=== PATIENT | male | born 1990 | race Two or more races ===

== ENCOUNTER 2020-11-26 19:23 | Inpatient (IN) | payer OTHER ==
[~2020-11-26] VITALS: Ht 175.3 cm; Wt 88.5 kg
--- NOTE | 2020-11-26 19:35 | NUR ---
PT BIBRA C/O SYNCOPAL EPISODE IN [employer] CHAIR. PT AAOX4 BREATHING EVENLY AND UNLABORED. PT STATES THAT HE WAS CONFUSED AFTER WAKING UP AND THAT HE FELT EVERYTHING "GO BLACK" BEFORE HIS SYNCOPAL EPISODE. PT SKIN WARM, DRY, AND INTACT. PT ARRIVED WITH 18G IN LEFT AC. PT ATTACHED TO MONITOR AND POX. PT GIVEN WARM BLANKET AND CALL LIGHT WITHIN REACH.
--- NOTE | 2020-11-26 19:50 | NUR ---
Note undone in EDM - 11/26/20 at 2005 by SUGAR PT BIBRA C/O SYNCOPAL EPISODE IN [employer] CHAIR. PT AAOX4 BREATHING EVENLY AND UNLABORED. PT STATES THAT HE WAS CONFUSED AFTER WAKING UP AND THAT HE FELT EVERYTHING "GO BLACK" BEFORE HIS SYNCOPAL EPISODE. PT SKIN WARM, DRY, AND INTACT. PT ARRIVED WITH 18G IN LEFT AC. PT ATTACHED TO MONITOR AND POX. PT GIVEN WARM BLANKET AND CALL LIGHT WITHIN REACH.
--- NOTE | 2020-11-26 19:54 | NUR ---
, NAZARIO TATUM, MITCHELL
[2020-11-26] MEDS ORDERED: IV NS 0.9% 1,000 ML IV ONE (20:00)
--- NOTE | 2020-11-26 20:14 | NUR ---
LAB AT [facility]
--- NOTE | 2020-11-26 20:14 | NUR ---
EMT AT BEDSIDE PERFORMING EKG
[2020-11-26 20:19] LABS: BASOPHILS # (AUTO) 0.1 /CMM (0.0-0.2); BASOPHILS % (AUTO) 0.9 % (0.0-2.0); HEMATOCRIT 40 % (39-51); HEMOGLOBIN 13.6 g/dL (13.5-17.5); LYMPHOCYTES # (AUTO) 1.8 /CMM (0.8-4.8); LYMPHOCYTES % (AUTO) 14.1 % (20.0-44.0); MEAN CORPUSCULAR HGB CONC 34 g/dl (31.0-36.0); MEAN CORPUSCULAR VOLUME 91 fL (80-96); MONOCYTES # (AUTO) 0.6 /CMM (0.1-1.30); MONOCYTES % (AUTO) 4.9 % (2.0-12.0); NEUTROPHILS % (AUTO) 79.1 % (43.0-81.0); PLATELET COUNT (AUTO) 187 /CMM (150-450); RED BLOOD CELL COUNT(AUTO) 4.41 MIL/uL (4.5-6.0); WHITE BLOOD COUNT (AUTO) 12.7 K/uL (4.3-11.0)
[2020-11-26 20:32] LABS: CALCIUM, SERUM 8.2 mg/dL (8.5-10.1); CARBON DIOXIDE 25 mmol/L (21-32); CHLORIDE 104 mmol/L (98-107); CREATININE 1.2 mg/dL (0.6-1.3); GLUCOSE 129 mg/dL (74-106); SODIUM SERUM 141 mmol/L (136-145); UREA NITROGEN, BLOOD 17 mg/dL (7-18)
--- NOTE | 2020-11-26 20:50 | NUR ---
called lab for covid swab
--- NOTE | 2020-11-26 20:54 | NUR ---
PT UNABLE TO GIVE URINE SAMPLE AT THE MOMENT
--- NOTE | 2020-11-26 22:26 | NUR ---
Call from Lab. rapid covid negative.
[2020-11-26] MEDS ORDERED: Z GUARD REMEDY 2 OZ OINT TP PRN (22:30)
[2020-11-26] MEDS ORDERED: IV NS 0.9% 1,000 ML IV PRN (22:30)
[2020-11-26] MEDS ORDERED: ONDANSETRON HCL/PF 4 MG/2 ML VIAL IVP PRN (22:30)
[2020-11-26] MEDS ORDERED: HYDROCODONE/APAP 5/325MG TABLET PO PRN (22:30)
[2020-11-26] MEDS ORDERED: LORAZEPAM INJ 2 MG/ML VIAL IV PRN (22:30)
[2020-11-26] MEDS ORDERED: MAG HYDROX/AL HYDROX/SIMETH 30 ML UDC PO PRN (22:30)
[2020-11-26] MEDS ORDERED: MAGNESIUM HYDROXIDE 30 ML UDC PO PRN (22:30)
[2020-11-26] MEDS ORDERED: ACETAMINOPHEN 325 MG TABLET PO PRN (22:30)
--- NOTE | 2020-11-26 22:59 | NUR ---
BED 320
--- NOTE | 2020-11-26 23:36 | NUR ---
gave report to garrett quinones for deanna
[2020-11-26 23:50] VITALS: BP 115/64
--- NOTE | 2020-11-26 23:50 | NUR ---
BALL ENDER NOTES RECEIVED REPORT FROM BECKI OVER THE PHONE. PATIENT WAS BROUGHT UP. A/O X4. NO SOB NOTED. IN NO APPARENT DISTRESS. VS BP 115/64 NC 85 RR 16 TEMP 97.8
[2020-11-27 04:00] VITALS: BP 109/56
--- NOTE | 2020-11-27 07:02 | NUR ---
PUBLIC HEALTH PHYSICIAN CLOSING NOTES PATIENT IN BED. A/O X4, AMBULATORY. AFEBRILE. NO SOB NOTED. NO S/S OF RESPIRATORY DISTRESS. BREATHING IS EVEN AND UNLABORED. DENIES ANY PAIN AT THIS TIME. TELE READING SB 53. IV ACCESS ON L AC #18 G, INTACT, PATENT, FLUSHING WELL. ALL NEEDS HAVE BEEN MET. SAFETY MEASURES MAINTAINED. BED IN LOWEST POSITION, BRAKES LOCKED. SIDE RAILS UP X2. CALL LIGHT WITHIN REACH. WILL ENDORSE TO PRECISION THREAD GRINDER OPERATOR FOR CONTINUITY OF CARE.
[2020-11-27 07:04] LABS: BASOPHILS % (AUTO) 0.4 % (0.0-2.0); EOSINOPHILS % (AUTO) 1.9 % (0.0-6.0); HEMATOCRIT 42 % (39-51); HEMOGLOBIN 14.5 g/dL (13.5-17.5); LYMPHOCYTES # (AUTO) 2.6 /CMM (0.8-4.8); LYMPHOCYTES % (AUTO) 29.5 % (20.0-44.0); MEAN CORPUSCULAR HGB CONC 34 g/dl (31.0-36.0); MEAN CORPUSCULAR VOLUME 90 fL (80-96); MONOCYTES # (AUTO) 0.5 /CMM (0.1-1.30); MONOCYTES % (AUTO) 5.1 % (2.0-12.0); NEUTROPHILS # (AUTO) 5.6 /CMM (1.8-8.9); NEUTROPHILS % (AUTO) 63.1 % (43.0-81.0); PLATELET COUNT (AUTO) 185 /CMM (150-450); RED BLOOD CELL COUNT(AUTO) 4.69 MIL/uL (4.5-6.0); WHITE BLOOD COUNT (AUTO) 8.8 K/uL (4.3-11.0)
[2020-11-27 07:12] LABS: CALCIUM, SERUM 8.7 mg/dL (8.5-10.1); CREATININE 0.8 mg/dL (0.6-1.3); PHOSPHORUS 3.8 mg/dL (2.5-4.9); POTASSIUM 3.8 mmol/L (3.5-5.1)
[2020-11-27 08:00] VITALS: BP 123/85
[2020-11-27] MEDS: ASPIRIN EC 81 MG TABLET.DR PO SCH (09:50)
[2020-11-27 10:05] LABS: CHOLESTEROL 147 mg/dL (<200); HDL CHOLESTEROL 60 mg/dL (40-60); LDL 81 mg/dL (0-99); TRIGLYCERIDES 45 mg/dL (30-150)
[2020-11-27 12:00] VITALS: BP 119/80
[2020-11-27 16:00] VITALS: BP 130/76
--- NOTE | 2020-11-27 19:04 | NUR ---
Patient awake, alert and ambulatory. No s/s of discomfort or distress. Good appetite. Continues on room air. SB to NSR on telemetry. IV c/d/i. Min assist for ADL's. Tolerated tests, cares and medications well.
[2020-11-27 20:00] VITALS: BP 125/75
--- NOTE | 2020-11-27 20:00 | NUR ---
MS RN NOTES RECEIVED OB ED A/O X4,BREATHING REGULAR,SALINE LOCK LEFT AC LEAKS WHEN FLUSH,AMBULATORY,DENIES SEIZURE ACTIVITY SINCE HE WAS ADMITTED.CALL LIGHT IN REACH,NEEDS ANTICIPATED.
--- NOTE | 2020-11-27 21:30 | NUR ---
SALES ENGINEERING MANAGER NOTES IV SITE LEAKING,NEW SALINE LOCK PLACE ON LEFT FOREARM, #20,FLUSHED AND KEPT PATENT.
[2020-11-28] VITALS: BP 106/69
[2020-11-28 04:00] VITALS: BP_SYST 118; BP_DIAS 66; BP_DIAS 68
[2020-11-28 06:27] LABS: BASOPHILS # (AUTO) 0.1 /CMM (0.0-0.2); BASOPHILS % (AUTO) 0.8 % (0.0-2.0); EOSINOPHILS % (AUTO) 3.6 % (0.0-6.0); HEMATOCRIT 42 % (39-51); HEMOGLOBIN 14.8 g/dL (13.5-17.5); LYMPHOCYTES # (AUTO) 2.7 /CMM (0.8-4.8); LYMPHOCYTES % (AUTO) 40.7 % (20.0-44.0); MEAN CORPUSCULAR HGB CONC 35 g/dl (31.0-36.0); MEAN CORPUSCULAR VOLUME 90 fL (80-96); MONOCYTES # (AUTO) 0.4 /CMM (0.1-1.30); MONOCYTES % (AUTO) 6.2 % (2.0-12.0); NEUTROPHILS # (AUTO) 3.2 /CMM (1.8-8.9); NEUTROPHILS % (AUTO) 48.7 % (43.0-81.0); PLATELET COUNT (AUTO) 188 /CMM (150-450); RED BLOOD CELL COUNT(AUTO) 4.74 MIL/uL (4.5-6.0); WHITE BLOOD COUNT (AUTO) 6.6 K/uL (4.3-11.0)
[2020-11-28 06:41] LABS: D-DIMER 0.19 mg/L(FEU (0.17-0.50)
[2020-11-28 06:49] LABS: ALBUMIN 3.7 g/dL (3.4-5.0); BILIRUBIN,TOTAL 0.7 mg/dL (0.2-1.0); CALCIUM, SERUM 9.1 mg/dL (8.5-10.1); CREATININE 0.9 mg/dL (0.6-1.3); MAGNESIUM 1.9 mg/dL (1.8-2.4); PHOSPHORUS 3.8 mg/dL (2.5-4.9); POTASSIUM 3.8 mmol/L (3.5-5.1); TOTAL PROTEIN, SERUM 6.6 g/dL (6.4-8.2)
[2020-11-28 06:58] LABS: THYROID STIMULATING HORMONE 0.968 uIU/mL (0.358-3.74)
--- NOTE | 2020-11-28 07:00 | NUR ---
BILLING DEPARTMENT SUPERVISOR OPENING NOTE RECEIVED PT AWAKE IN BED AT THIS TIME. AOX4. PT ABLE TO MAKE NEEDS KNOWN. PT DENIES ANY SEIZURE ACTIVITY. NO SOB NOTED, NO S/S OF ANY ACUTE DISTRESS NOTED, NO C/O PAIN AT THIS TIME. PT STABLE ON RA. PT ON EXTERNAL PUBLIC WEIGHER READING SB 59. IV ACCESS NOTED IN RFA G#20, INTACT, PATENT AND FLUSHING WELL. ASPIRATIONS AND SAFETY PRECAUTIONS IN PLACE AND MAINTAINED AT ALL TIMES. BED IN LOWEST LOCKED POSITION, SIDE RAILS UP, HOB ELEVATED, TABLE AND CALL LIGHT WITHIN REACH. WILL CONTINUE TO MONITOR.
--- NOTE | 2020-11-28 07:06 | NUR ---
CORE DRILLER HELPER NOTES SR ON TELE MONITOR,NO SEIZURE ACTIVITY NOTED.FOR EEG TODAY TO EVALUATE SEIZURE ACTIVITY.
[2020-11-28 08:00] VITALS: BP 117/77
[2020-11-28] MEDS: ASPIRIN EC 81 MG TABLET.DR PO SCH (08:37)
--- NOTE | 2020-11-28 16:50 | NUR ---
ADOLESCENT MEDICINE SPECIALIST NOTES PT DISCHARGE HOME with AT THIS TIME. PT MEDICALLY STABLE AND CLEARED FOR DISCHARGE BY COURTNEY SAMUEL. ALL DISCHARGE INSTRUCTIONS PROVIDED, PT VERBALIZED UNDERSTANDING. FLU VACCINE UPTO DATE, ALL CARE, NEEDS, MEDICATIONS AND TREATMENT ADMINISTERED ANTICIPATED PER PROTOCOL. PT KEPT CLEAN AND DRY. BELONGINGS ACCOUNTED FOR, SIGNED BY PT AND WITH PT. IV ACCESS REMOVED, PRESSURE APPLIED, SECURED WITH GAUZE AND TAPE. NO SIGN OF BLEEDING OR INFILTRATION NOTED. PT TRANSPORTED BY WHEEL FROM UNIT IN STABLE CONDITION, ACCOMPANIED BY LOUIE PEDROZA. PT PICKED UP IN PRIVATE CAR BY FAMILY (SISTER). ROSA, CHARGE NURSE AND COURTNEY SAMUEL AWARE
== END 2020-11-28 16:48 | disposition home or self-care (01) | DRG 422 ==
LOC: ER 19:27 → TELE 23:08
PROVIDERS: ADMIT Internal Medicine; ATTEND Hospitalist
DX: E86.0 Dehydration (principal); G92 Toxic encephalopathy; D72.829 Elevated white blood cell count, unspecified; F10.10 Alcohol abuse, uncomplicated; Y90.0 Blood alcohol level of less than 20 mg/100 ml; F12.90 Cannabis use, unspecified, uncomplicated; Z20.822 Contact with and (suspected) exposure to COVID-19; Z87.891 Personal history of nicotine dependence; R00.2 Palpitations
CPT/HCPCS: 36415; 70450-TC; 71045-TC; 80048-TC; 80053-TC; 80061-TC; 83735-TC; 84100-TC; 84439-TC; 84443-TC; 84484-TC; 85025-TC; 85378-TC; 85730-TC; 87081-TC; 93307-TC; 93880-TC; 95819-TC; C9803; G0378; G0480; J7030